=== PATIENT | female | born 1965 | race Caucasian/White ===

== ENCOUNTER 2017-01-09 19:05 | Emergency (ER) | payer BC | END 2017-01-09 20:38 | disposition left against medical advice (07) | LOC: UCCORT 19:05 | DX: J34.89 Other specified disorders of nose and nasal sinuses (principal); J02.9 Acute pharyngitis, unspecified; Z53.21 Procedure and treatment not carried out due to patient leaving prior to being seen by health care provider ==

== ENCOUNTER 2017-06-24 13:22 | Emergency (ER) | payer BC ==
[2017-06-24 13:52] VITALS: BP 133/74
--- NOTE | 2017-06-24 14:30 | UC ---
Respiratory Complaint HPI - HPI Summary HPI Summary: 51 y/o female presents to the urgent care c/o persistent cough for the past week. Pt states she saw her PCP this last Monday06/20/2017 and was Rx Cefdinir and Xoponex inhaler. Her cough was producing a yellowish phlegm and now it is white for the past 2 days. Pt is concern w/ bronchitis. She has been using the inhaler, but the cough is not letting her sleep. Pt denies fever, SOB, chest pain, N/V/D. Pt has not other complains - History of Current Complaint Chief Complaint: UCRespiratory Stated Complaint: BRONCHITIS Time Seen by Provider: 06/24/17 14:08 Hx Obtained From: Patient Hx Last Menstrual Period: unknown ?: No Onset/Duration: Gradual Onset, Lasting Days, Still Present Timing: Intermittent Episodes - productive cough Severity Initially: Mild Severity Currently: Moderate Pain Intensity: 0 Pain Scale Used: 0-10 Numeric Character: Cough: Productive - white discharge Aggravating Factors: Recumbent Position Alleviating Factors: Bronchodilator Associated Signs And Symptoms: Negative: Dyspnea, Fever, Nasal Congestion, Hoarseness, Sinus Discomfort Related History: Seasonal Allergies - Risk Factors Pulmonary Embolism Risk Factors: Negative Cardiac Risk Factors: Negative Pseudomonas Risk Factors: Negative Tuberculosis Risk Factors: Negative - Allergies/Home Medications Allergies/Adverse Reactions: Allergies Allergy/AdvReac Type Severity Reaction Status Date / Time Sulfa Drugs Allergy Intermediate Rash Verified 06/24/17 13:45 Home Medications: Home Medications Cefdinir [Cefdinir 300 MG CAP] 300 mg PO BID 06/24/17 [History Confirmed ] Levalbuterol HFA INHALER* [Xopenex Hfa Inhaler*] 2 puff INH QID PRN 06/24/17 [ History Confirmed 06/24/17] Levonorgestrel (Iud) [Mirena IUD] 20 mcg IU ONCE 06/24/17 [History Confirmed 10/29] PMH/Surg Hx/FS Hx/Imm Hx Previously Healthy: Yes - Surgical History Surgical History: Yes Surgery Procedure, Year, and Place: 2 Right knee surgeries. both wrists - Family History Known Family History: Positive: Cardiac Disease - Social History Occupation: Employed Full-time Lives: With Family Alcohol Use: None Substance Use Type: None Smoking Status (MU): Never Smoked Tobacco Review of Systems Constitutional: Negative Skin: Negative Eyes: Negative ENT: Negative Respiratory: Cough - productive w/ white phlegm Cardiovascular: Negative Gastrointestinal: Negative Genitourinary: Negative Motor: Negative Neurovascular: Negative Musculoskeletal: Negative Neurological: Negative Psychological: Negative All Other Systems Reviewed And Are Negative: Yes Physical Exam Triage Information Reviewed: Yes Appearance: Well-Appearing, No Pain Distress, Well-Nourished Vital Signs: Initial Vital Signs Temp 98.3 F 06/24/17 13:47 Pulse 102 06/24/17 13:47 Resp 16 06/24/17 13:47 BP 133/74 06/24/17 13:47 Pulse Ox 99 06/24/17 13:47 Vital Signs Reviewed: Yes Eye Exam: Normal Eyes: Positive: Conjunctiva Clear ENT Exam: Normal ENT: Positive: Normal ENT inspection, Hearing grossly normal, Pharynx normal, Nasal congestion, Nasal drainage - clear Dental Exam: Normal Neck exam: Normal Neck: Positive: Supple, Nontender, No Lymphadenopathy Respiratory Exam: Normal Respiratory: Positive: Chest non-tender, Lungs clear, Normal breath sounds Cardiovascular Exam: Normal Cardiovascular: Positive: RRR, No Murmur, Pulses Normal, Brisk Capillary Refill Abdominal Exam: Normal Abdomen Description: Positive: Nontender, No Organomegaly, Soft. Negative: CVA Tenderness (R), CVA Tenderness (L) Bowel Sounds: Positive: Present Musculoskeletal Exam: Normal Musculoskeletal: Positive: Strength Intact, ROM Intact, No Edema Neurological Exam: Normal Psychological Exam: Normal Skin Exam: Normal UC Diagnostic Evaluation - Laboratory O2 Sat by Pulse Oximetry: 99 Respiratory Course/Dx - Course Course Of Treatment: . 51 y/o female presents to the urgent care c/o persistent cough for the past week. Pt states she saw her PCP this last Monday06/20/2017 and was Rx Cefdinir and Xoponex inhaler. Her cough was producing a yellowish phlegm and now it is white for the past 2 days. Pt is concern w/ bronchitis. She has been using the inhaler, but the cough is not letting her sleep. Pt denies fever, SOB, chest pain, N/V/D.Hx obtained. PE: WNL. Pt Rx Tesalon tabs PO and albuterol neb. to alleviate symptoms and advised to continue taking the antibiotics and increse fluid intake, rest, eat well, Pt understood and agreed - Differential Dx/Diagnosis Differential Diagnosis/HQI/PQRI: Asthma, Bronchitis, Laryngitis, Sinusitis Provider Diagnoses: 1- Persistent Cough Discharge - Discharge Plan Condition: Stable Disposition: HOME Prescriptions: Benzonatate CAP* [Tessalon 100 MG CAP*] 100 mg PO TID #21 cap Levalbuterol 0.63MG/3ML NEB* [Xopenex 0.63MG/3ML NEB*] 0.63 mg INH Q6H #1 box Patient Education Materials: Acute Bronchitis (ED) Referrals: Gayle Peña MD [Primary Care Provider] - 1 Week Additional Instructions: Please continue taking your antibiotic full course. Continue doing the Xoponex Neb treatments at home and take the Tessalon PO tabs to alleviate symptoms of cough. Increase fluid intake, eat well and rest. If symptoms do not improve please f/u with your PCP for further evaluation and treatment.
== END 2017-06-24 14:39 | disposition home or self-care (01) ==
LOC: UCCORT 13:22
DX: R05 Cough (principal); Z88.2 Allergy status to sulfonamides
CPT/HCPCS: 99212; G0463

== ENCOUNTER 2018-11-03 09:09 | Emergency (ER) | payer BC ==
[2018-11-03 09:29] VITALS: BP 129/80
--- NOTE | 2018-11-03 10:17 | UC ---
Throat Pain/Nasal Joshua HPI - HPI Summary HPI Summary: Pt presents with c/o three weeks of sinus pressure and pain. Pt has been using saline nasal spray with some temporary relief. - History of Current Complaint Chief Complaint: UCGeneralIllness Stated Complaint: SINUSES Time Seen by Provider: 11/03/18 10:12 Hx Obtained From: Patient Hx Last Menstrual Period: unknown ?: No Onset/Duration: Sudden Onset, Lasting Weeks, Still Present Severity: Moderate Pain Intensity: 0 Cough: None Associated Signs & Symptoms: Positive: Sinus Discomfort - Epiglottits Risk Factors Epiglottis Risk Factors: Negative - Allergies/Home Medications Allergies/Adverse Reactions: Allergies Allergy/AdvReac Type Severity Reaction Status Date / Time Sulfa (Sulfonamide Allergy Rash Verified 11/03/18 09:26 Antibiotics) PMH/Surg Hx/FS Hx/Imm Hx Previously Healthy: Yes - Surgical History Surgical History: Yes Surgery Procedure, Year, and Place: 2 Right knee surgeries. both wrists - Family History Known Family History: Positive: Cardiac Disease - Social History Occupation: Employed Full-time Lives: With Family Alcohol Use: None Substance Use Type: None Smoking Status (MU): Never Smoked Tobacco Review of Systems All Other Systems Reviewed And Are Negative: Yes Constitutional: Positive: Fatigue Skin: Positive: Negative Eyes: Positive: Negative ENT: Positive: Sinus Congestion, Sinus Pain/Tenderness Respiratory: Positive: Negative Cardiovascular: Positive: Negative Gastrointestinal: Positive: Negative Genitourinary: Positive: Negative Motor: Positive: Negative Neurovascular: Positive: Negative Musculoskeletal: Positive: Negative Neurological: Positive: Negative Psychological: Positive: Negative Is Patient Immunocompromised?: No Physical Exam Triage Information Reviewed: Yes Appearance: Well-Appearing Vital Signs: Initial Vital Signs Temp 98.4 F 11/03/18 09:25 Pulse 79 11/03/18 09:25 Resp 14 11/03/18 09:25 BP 129/80 11/03/18 09:25 Pulse Ox 99 11/03/18 09:25 Vital Signs Reviewed: Yes Eye Exam: Normal ENT: Positive: Nasal congestion, Sinus tenderness Dental Exam: Normal Neck exam: Normal Respiratory Exam: Normal Cardiovascular Exam: Normal Musculoskeletal Exam: Normal Neurological Exam: Normal Psychological Exam: Normal Skin Exam: Normal Throat Pain/Nasal Course/Dx - Differential Dx/Diagnosis Differential Diagnosis/HQI/PQRI: Sinusitis Provider Diagnosis: Sinusitis Discharge - Sign-Out/Discharge Documenting (check all that apply): Patient Departure All imaging exams completed and their final reports reviewed: No Studies - Discharge Plan Condition: Stable Disposition: HOME Prescriptions: Cefdinir [Cefdinir 300 MG CAP] 300 mg PO Q12H #20 capsule Patient Education Materials: Sinusitis (ED) Referrals: Rema Shipley [Primary Care Provider] - If Needed - Billing Disposition and Condition Condition: STABLE Disposition: Home
== END 2018-11-03 10:24 | disposition home or self-care (01) ==
LOC: UCCORT 09:09
DX: J32.9 Chronic sinusitis, unspecified (principal); Z88.2 Allergy status to sulfonamides
CPT/HCPCS: 99212; G0463

== ENCOUNTER 2019-08-06 12:10 | Emergency (ER) | payer BC ==
[2019-08-06 12:49] VITALS: BP 124/79
--- NOTE | 2019-08-06 13:11 | UC ---
Throat Pain/Nasal Joshua HPI - HPI Summary HPI Summary: sinus pain and pressure x 2 weeks + nasal congestion , pnd, cough subjective fever, chills , body aches - History of Current Complaint Chief Complaint: UCRespiratory Stated Complaint: CHEST CONGESTION/COUGH Time Seen by Provider: 08/06/19 12:56 Hx Obtained From: Patient Hx Last Menstrual Period: Mirena IUD Onset/Duration: Gradual Onset, Lasting Weeks - 2, Still Present Severity: Moderate Pain Intensity: 0 Cough: Nonproductive Associated Signs & Symptoms: Positive: Sinus Discomfort, Nasal Discharge, Fever. Negative: Vomiting, Rash - Allergies/Home Medications Allergies/Adverse Reactions: Allergies Allergy/AdvReac Type Severity Reaction Status Date / Time Sulfa (Sulfonamide Allergy Rash Verified 08/06/19 12:46 Antibiotics) clavulanic acid AdvReac Vomiting Verified 08/06/19 12:46 Home Medications: Home Medications Albuterol 2.5MG/3ML (0.083%)* [Ventolin 2.5 MG/3 ML NEB.MILLER*] 2.5 mg INH Q6H PRN 08/06/19 [History Confirmed 08/06/19] Cholecalciferol TAB* [Vitamin D TAB*] 400 unit PO DAILY 08/06/19 [History Confirmed 08/06/19] Levonorgestrel (Iud) [Mirena IUD] 20 mcg IU ONCE 08/06/19 [History Confirmed ] Vitamin B Complex TAB* [B Complex-50*] 1 tab PO DAILY 08/06/19 [History Confirmed 08/06/19] PMH/Surg Hx/FS Hx/Imm Hx Previously Healthy: Yes - Surgical History Surgical History: Yes Surgery Procedure, Year, and Place: 2 Right knee surgeries. both wrists - Family History Known Family History: Positive: Cardiac Disease - Social History Alcohol Use: None Substance Use Type: None Smoking Status (MU): Never Smoked Tobacco - Immunization History Most Recent Tetanus Shot: 07/30/15 Review of Systems All Other Systems Reviewed And Are Negative: Yes Constitutional: Positive: Negative Skin: Positive: Negative Eyes: Positive: Negative ENT: Positive: Sore Throat, Nasal Discharge, Sinus Congestion, Sinus Pain/ Tenderness Respiratory: Positive: Cough Cardiovascular: Positive: Negative Is Patient Immunocompromised?: No Physical Exam Triage Information Reviewed: Yes Appearance: Well-Appearing, No Pain Distress, Well-Nourished Vital Signs: Initial Vital Signs Temp 98.8 F 08/06/19 12:43 Pulse 88 08/06/19 12:43 Resp 16 08/06/19 12:43 BP 124/79 08/06/19 12:43 Pulse Ox 99 08/06/19 12:43 Vital Signs Reviewed: Yes Eye Exam: Normal Eyes: Positive: Conjunctiva Clear ENT: Positive: Normal ENT inspection, Hearing grossly normal, Pharynx normal, Nasal congestion, Nasal drainage, TMs normal, Sinus tenderness Neck exam: Normal Neck: Positive: Supple, Nontender, No Lymphadenopathy Respiratory: Positive: Chest non-tender, Lungs clear, Normal breath sounds Cardiovascular: Positive: RRR, No Murmur, Pulses Normal Skin Exam: Normal Throat Pain/Nasal Course/Dx - Differential Dx/Diagnosis Provider Diagnosis: Sinusitis Discharge ED - Sign-Out/Discharge Documenting (check all that apply): Patient Departure All imaging exams completed and their final reports reviewed: No Studies - Discharge Plan Condition: Stable Disposition: HOME Prescriptions: Cefdinir [Cefdinir 300 MG CAP] 300 mg PO BID #20 capsule Patient Education Materials: Sinusitis (ED) Referrals: Rema Shipley [Primary Care Provider] - If Needed - Billing Disposition and Condition Condition: STABLE Disposition: Home
== END 2019-08-06 13:09 | disposition home or self-care (01) ==
LOC: UCCORT 12:10
DX: J32.9 Chronic sinusitis, unspecified (principal); Z88.2 Allergy status to sulfonamides; Z88.8 Allergy status to other drugs, medicaments and biological substances
CPT/HCPCS: 99212; G0463

== ENCOUNTER 2019-11-12 11:30 | Emergency (ER) | payer BC ==
--- NOTE | 2019-11-12 13:06 | UC ---
Throat Pain/Nasal Joshua HPI - HPI Summary HPI Summary: Pt presents with c/o nasal congestion, left side cheek/sinus pressure and pain X 10 days. - History of Current Complaint Chief Complaint: UCRespiratory Stated Complaint: SINUS COMPLAINT Time Seen by Provider: 11/12/19 12:49 Hx Obtained From: Patient Hx Last Menstrual Period: Mirena IUD ?: No Onset/Duration: Gradual Onset, Lasting Days, Still Present Severity: Moderate Pain Intensity: 1 Cough: None Associated Signs & Symptoms: Positive: Sinus Discomfort, Other - hot flashes - Epiglottits Risk Factors Epiglottis Risk Factors: Negative - Allergies/Home Medications Allergies/Adverse Reactions: Allergies Allergy/AdvReac Type Severity Reaction Status Date / Time Sulfa (Sulfonamide Allergy Rash Verified 11/12/19 12:23 Antibiotics) clavulanic acid AdvReac Vomiting Verified 11/12/19 12:23 Home Medications: Home Medications Azelastine 0.1% Nasal (NF) [Astepro 0.1% Nasal (NF)] 1 spray DAILY 11/12/19 [ History Confirmed 11/12/19] PMH/Surg Hx/FS Hx/Imm Hx Previously Healthy: Yes Psychological History: Anxiety - Surgical History Surgical History: Yes Surgery Procedure, Year, and Place: 2 Right knee surgeries. both wrists. non- cancerous lump removal on LEFT breast (scheduled for 12/27/19) - Family History Known Family History: Positive: Cardiac Disease - Social History Occupation: Employed Full-time Lives: With Family Alcohol Use: None Substance Use Type: None Smoking Status (MU): Never Smoked Tobacco Have You Smoked in the Last Year: No - Immunization History Most Recent Tetanus Shot: 07/30/15 Review of Systems All Other Systems Reviewed And Are Negative: Yes Constitutional: Positive: Chills, Fatigue Skin: Positive: Negative Eyes: Positive: Negative ENT: Positive: Ear Ache, Sinus Congestion, Sinus Pain/Tenderness Respiratory: Positive: Cough Cardiovascular: Positive: Negative Gastrointestinal: Positive: Negative Genitourinary: Positive: Negative Motor: Positive: Negative Neurovascular: Positive: Negative Musculoskeletal: Positive: Negative Neurological: Positive: Headache Psychological: Positive: Negative Is Patient Immunocompromised?: No Physical Exam Triage Information Reviewed: Yes Appearance: Ill-Appearing Vital Signs: Initial Vital Signs Temp 97 F 11/12/19 12:22 Pulse 74 11/12/19 12:22 Resp 16 11/12/19 12:22 BP 157/77 11/12/19 12:22 Pulse Ox 100 11/12/19 12:22 Vital Signs Reviewed: Yes Eye Exam: Normal ENT: Positive: Nasal congestion, Sinus tenderness Dental Exam: Normal Neck exam: Normal Respiratory Exam: Normal Respiratory: Positive: Lungs clear, Normal breath sounds Cardiovascular Exam: Normal Musculoskeletal Exam: Normal Neurological Exam: Normal Psychological Exam: Normal Skin Exam: Normal Throat Pain/Nasal Course/Dx - Differential Dx/Diagnosis Differential Diagnosis/HQI/PQRI: Sinusitis, URI Provider Diagnosis: Sinusitis Discharge ED - Sign-Out/Discharge Documenting (check all that apply): Patient Departure All imaging exams completed and their final reports reviewed: No Studies - Discharge Plan Condition: Stable Disposition: HOME Prescriptions: Cefdinir cap* [Cefdinir 300 MG cap (NF)] 300 mg PO Q12H #20 cap Patient Education Materials: Sinusitis (ED) Referrals: Rema Shipley [Primary Care Provider] - If Needed - Billing Disposition and Condition Condition: STABLE Disposition: Home
[2019-11-12 13:14] VITALS: BP 122/71
== END 2019-11-12 13:12 | disposition home or self-care (01) ==
LOC: UCCORT 11:30
DX: J32.9 Chronic sinusitis, unspecified (principal); Z88.2 Allergy status to sulfonamides; Z88.0 Allergy status to penicillin
CPT/HCPCS: 99212; G0463